=== PATIENT | female | born 1955 | race Caucasian/White ===

== ENCOUNTER 2016-09-24 13:08 | Emergency (ER) | payer BC ==
[2016-09-24 13:17] VITALS: O2SAT 96
[2016-09-24] MEDS ORDERED: Adacel Vial IM ONE ×2 (13:23→13:25)
--- NOTE | 2016-09-24 13:30 | ERPHSYRPT ---
- History of Present Illness Time Seen by Provider: 09/24/16 13:25 Source: patient Exam Limitations: no limitations Patient Subjective Stated Complaint: pt states she was cutting up veggies and lacerated right middle finger. Triage Nursing Assessment: pt pink, warm, dry. evulsion noted to tip of right middle finger. bleeding controlled. Physician History: The patient is a 61-year-old female who comes in complaining that she cut the tip of her right middle finger while slicing potatoes. She says she took a piece of the skin off the tip and it did not want to stop bleeding. She takes no blood thinners. She does not remember her last tetanus vaccination. She denies numbness or tingling. Occurred: hours ago (2) Method of Injury: incised Quality: sharpness Severity of Pain-Max: mild Severity of Pain-Current: mild Extremities Pain Location: 3rd finger: right Modifying Factors: Improves With: nothing Associated Symptoms: none Allergies/Adverse Reactions: No Known Drug Allergies Allergy (Unverified 09/24/16 13:17) Home Medications: Fluoxetine HCl [Prozac] 10 mg PO DAILY 09/24/16 [History] Hx Tetanus, Diphtheria Vaccination/Date Given: Yes (unknown) Hx Influenza Vaccination/Date Given: No Hx Pneumococcal Vaccination/Date Given: No Immunizations Up to Date: Yes - Review of Systems Constitutional: No Fever, No Chills Eyes: No Symptoms Ears, Nose, & Throat: No Symptoms Respiratory: No Cough, No Dyspnea Cardiac: No Chest Pain, No Edema, No Syncope Abdominal/Gastrointestinal: No Abdominal Pain, No Nausea, No Vomiting, No Diarrhea Genitourinary Symptoms: No Dysuria Musculoskeletal: No Back Pain, No Neck Pain Skin: Other (skin avulsion) Neurological: No Dizziness, No Focal Weakness, No Sensory Changes Psychological: No Symptoms Endocrine: No Symptoms Hematologic/Lymphatic: No Symptoms Immunological/Allergic: No Symptoms All Other Systems: Reviewed and Negative - Past Medical History Pertinent Past Medical History: Yes Other Medical History: breast CA. leukemia - Past Surgical History Past Surgical History: Yes Musculoskeletal: Orthopedic Surgery Female Surgical History: Tubal Ligation, Mastectomy, Breast Implant - Social History Smoking Status: Never smoker Exposure to second hand smoke: No Drug Use: none Patient Lives Alone: No - Nursing Vital Signs Nursing Vital Signs: Initial Vital Signs Temperature 99.4 F Temperature Source Oral Pulse Rate 86 Respiratory Rate 18 Blood Pressure [Right Arm] 157/93 Pain Intensity 0 - Physical Exam General Appearance: alert Eyes, Ears, Nose, Throat Exam: moist mucous membranes Neck Exam: non-tender, supple Cardiovascular/Respiratory Exam: chest non-tender, normal breath sounds, regular rate/rhythm, no respiratory distress Abdominal Exam: non-tender, No guarding Back Exam: normal inspection, No vertebral tenderness Shoulder Exam: normal inspection Elbow/Forearm Exam: normal inspection Wrist Exam: normal inspection Hand Exam: normal inspection Neuro/Tendon Exam: normal sensation, normal motor functions Mental Status Exam: alert, oriented x 3, cooperative Skin Exam: laceration (small skin avulsion to tip of right middle finger) SpO2 Interpretation: normal SpO2: 96 Oxygen Delivery: Room Air Ordered Tests: Active Orders 24 hr Category Date Time Status Wound Care STAT Care 09/24/16 13:23 Active Medication Summary Discontinued Medications Generic Name Dose Route Start Last Admin Trade Name Freq PRN Reason Stop Dose Admin Diphtheria/Tetanus/Acell Pertussis 0.5 ml 09/24/16 13:23 Adacel Vial IM 09/24/16 13:24 .ONCE ONE - Progress Progress: improved Counseled pt/family regarding: diagnosis - Departure Time of Disposition: 13:29 Departure Disposition: Home Clinical Impression: Laceration of finger Condition: Stable Critical Care Time: No Instructions: Care for a Laceration After Repair Additional Instructions: Keep area dry today. Change dressing as needed.
[2016-09-24 13:47] VITALS: BP 140/86; PULSE 77
== END 2016-09-24 13:51 | disposition home or self-care (01) ==
LOC: ED 13:08
DX: S61.212A Laceration without foreign body of right middle finger without damage to nail, initial encounter (principal); W26.0XXA Contact with knife, initial encounter; Y93.G1 Activity, food preparation and clean up
CPT/HCPCS: 90471; 90715; 99283; 99284

== ENCOUNTER 2024-05-25 09:49 | Day surgery (SDC) | payer MEDICARE ==
[2024-05-25] MEDS ORDERED: Decadron 4 MG INJ IV ONE (09:50)
[2024-05-25] MEDS ORDERED: Sodium Chloride 0.9(Preservative Free) 10 ML IJ ONE (09:50)
[2024-05-25] MEDS ORDERED: DIPRIVAN 200 MG/20 ML IV ONE (11:15)
[2024-05-25] MEDS ORDERED: MORPHINE SULFATE 2 MG INJ ONE (11:38)
--- NOTE | 2024-05-25 13:45 | XRAY ---
Indication: Right L4-S1 transforaminal FIDELINA. Intraoperative fluoroscopy provided for 24 seconds. 6 digital spot image submitted for interpretation demonstrates posterior needle tips projecting over the expected right L4 and L5 nerve roots. Small amount of contrast injected for needle tip placement. Correlate with intraoperative findings/report.
--- NOTE | 2024-05-25 13:53 | XRAY ---
24 seconds of fluoroscopy was used in surgery for a right L4-S1 transforaminal FIDELINA.
== END 2024-05-25 11:30 | disposition home or self-care (01) ==
LOC: SDC-PAIN 09:49
PROVIDERS: ATTEND Psychiatry & Neurology Pain Medicine
DX: M54.16 Radiculopathy, lumbar region (principal); E11.9 Type 2 diabetes mellitus without complications
CPT/HCPCS: 64483; 64484; 72100; 77003; 82947; J1100; J2270; J2704; Q9966

== ENCOUNTER 2024-06-29 11:25 | Day surgery (SDC) | payer MEDICARE ==
[2024-06-29] MEDS ORDERED: LIDOCAINE HCL 1% AMPUL 5 ML IJ ONE (11:26)
[2024-06-29] MEDS ORDERED: Sodium Chloride 0.9(Preservative Free) 10 ML IJ ONE (11:26)
[2024-06-29] MEDS ORDERED: Depo-Medrol 40 MG/ML IM ONE (11:26)
[2024-06-29] MEDS ORDERED: DIPRIVAN 200 MG/20 ML IV ONE (13:03)
[2024-06-29] MEDS ORDERED: MORPHINE SULFATE 2 MG INJ ONE (13:32)
--- NOTE | 2024-06-29 14:39 | XRAY ---
Indication: Lumbar FIDELINA. Intraoperative fluoroscopy provided for 11 seconds. 2 digital spot image submitted for interpretation demonstrates posterior needle tip projecting posterior to lumbosacral junction interspace. Small amount of contrast injected for needle tip placement. Correlate with operative findings/report.
--- NOTE | 2024-06-29 17:10 | XRAY ---
11 seconds of fluoroscopy was used in surgery for a lumbar FIDELINA.
== END 2024-06-29 13:55 | disposition home or self-care (01) ==
LOC: SDC-PAIN 11:25
PROVIDERS: ATTEND Psychiatry & Neurology Pain Medicine
DX: M54.16 Radiculopathy, lumbar region (principal); E11.9 Type 2 diabetes mellitus without complications
CPT/HCPCS: 62323; 72100; 77003; 82947; J2270; J2704; Q9966

== ENCOUNTER 2024-08-17 10:25 | Day surgery (SDC) | payer MEDICARE ==
[2024-08-17] MEDS ORDERED: propofoL IV ONE (12:00)
[2024-08-17] MEDS ORDERED: MORPHINE SULFATE 2 MG INJ ONE (12:27)
--- NOTE | 2024-08-17 13:20 | XRAY ---
Indication: Right hip and greater trochanter bursa injection. Intraoperative fluoroscopy provided for 13 seconds. 2 digital spot images submitted for interpretation demonstrates needle tip projecting lateral to right femur neck. Second new tip lateral to greater trochanter. Small amount of contrast injected for both needle tip placement. Correlate with intraoperative findings/report.
--- NOTE | 2024-08-17 13:31 | XRAY ---
13 seconds of fluoroscopy was used in surgery for a right intra-articular hip and greater trochanteric bursa injection.
== END 2024-08-17 12:50 | disposition home or self-care (01) ==
LOC: SDC-PAIN 10:25
PROVIDERS: ATTEND Psychiatry & Neurology Pain Medicine
DX: M16.11 Unilateral primary osteoarthritis, right hip (principal); M70.61 Trochanteric bursitis, right hip; E11.9 Type 2 diabetes mellitus without complications
CPT/HCPCS: 20610; 73502; 77002; 82947; J2270; J2704; Q9966